=== PATIENT | male | born 1985 | race African-American/Black ===

== ENCOUNTER 2017-04-16 08:57 | Emergency (ER) | payer SELFPAY ==
[~2017-04-16] VITALS: Ht 172.7 cm; Wt 93.0 kg
[~2017-04-16 08:57] MED LIST: TAB-TAB PO
[2017-04-16 09:01] VITALS: BP 138/81; PULSE 84; RESP 14; TEMP 97.8; O2SAT 100
[2017-04-16] MEDS ORDERED: AUGM875T3 PO (09:21)
[2017-04-16] MEDS ORDERED: NAPR500T2 PO (09:21)
--- NOTE | 2017-04-16 09:22 | PD ---
HPI Chief Complaint: Oral / Dental Pain or Problem Time Seen by Provider: 09:05 Travel History International Travel<30 days: No Contact w/Intl Traveler<30days: No Traveled to known affect area: No History of Present Illness HPI 31-year-old male presents to the emergency department complaining of right- sided facial pain, some dental pain, radiating to the ear. Symptoms been ongoing for the past several days, other severe, worse at night. No relief with [id number] analgesics at home. No fevers or chills. Was sick with flulike symptoms a couple days ago. No other complaints. History Past Medical History Medical History: Denies Significant Hx Social History Alcohol Use: No (denies ) Tobacco Use: Yes (1/2 pack a day ) Allergies-Medications (Allergen,Severity, Reaction): Coded Allergies: No Known Allergies (Verified Adverse Reaction, Unknown, 04/16/17) Reported Meds & Prescriptions Reported Meds & Active Scripts Active No Active Prescriptions or Reported Medications Review of Systems Except as stated in HPI: all other systems reviewed are Neg Physical Exam Narrative GENERAL: Well appearing 32-year-old man, no acute distress. SKIN: Focused skin assessment warm/dry. HEAD: Atraumatic. Normocephalic. EYES: Pupils equal and round. No scleral icterus. No injection or drainage. ENT: No nasal bleeding or discharge. Mucous membranes pink and moist. Bilateral TMs are occluded with cerumen. The oropharynx is generally unremarkable. There is no dental tenderness to percussion. There is a little bit of sensitivity to the gumline behind a third molar on the right, there is no obvious abscess fluctuance or drainage. There is some fullness and tenderness to the parotid gland on the right but no purulent drainage from Stensen's duct. There is a little bit of adenopathy in the anterior cervical chain on the right side as well. NECK: Trachea midline. No JVD. CARDIOVASCULAR: Regular rate and rhythm. No murmur appreciated. RESPIRATORY: No accessory muscle use. Clear to auscultation. Breath sounds equal bilaterally. GASTROINTESTINAL: Abdomen soft, non-tender, nondistended. Hepatic and splenic margins not palpable. MUSCULOSKELETAL: No obvious deformities. No clubbing. No cyanosis. No edema. NEUROLOGICAL: Awake and alert. No obvious cranial nerve deficits. Motor grossly within normal limits. Normal speech. PSYCHIATRIC: Appropriate mood and affect; insight and judgment normal. Data Data Last Documented VS Vital Signs Date Time Temp Pulse Resp B/P (MAP) Pulse Ox O2 Delivery O2 Flow Rate FiO2 04/16/17 09:01 97.8 84 14 138/81 (100) 100 Room Air Orders Orders Naproxen (Naprosyn) (04/16/17 09:30) Dexamethasone (Decadron) (04/16/17 09:30) Amoxicil-Clavulanate (Augmentin) (04/16/17 09:30) MDM Medical Decision Making Medical Screen Exam Complete: Yes Emergency Medical Condition: Yes Differential Diagnosis Parotiditis, sinusitis, dental pain, otitis, other Narrative Course 32-year-old man, presents to the ED complaining of right-sided facial pain. Seems to have tenderness more in the cheek and parotid gland. There is a little bit of visible asymmetry from the outside, but not clear prostatitis. Sinus infection possible as well. Symptoms do not seem consistent with an otitis. Will treat for sinusitis, NSAIDs, antibiotics, close outpatient follow- up. Diagnosis Primary Impression: Sinusitis Additional Instructions: Take Naprosyn as prescribed as needed for inflammation and pain. If you develop fever in the next 24 hours or not improving in the next 48 hours , take Augmentin as prescribed. Follow up with your primary doctor in the next 2-4 days if not feeling improved. Return to the emergency department for any new or worsening symptoms. Med/Other Pt SpecificInfo: Prescription(s) given Scripts Amoxicillin-Clavulanate (Augmentin) 875-125 Mg Tab 1 TAB PO BID for Infection, #10 TAB 0 Refills Prov: Leandro Arce MD 04/16/17 Naproxen (Naproxen) 500 Mg Tab 500 MG PO BID, #14 TAB 0 Refills Prov: Leandro Arce MD 04/16/17 Leandro Arce MD Apr 16, 2017 09:22
[2017-04-16] MEDS ORDERED: NAPROXEN 500 MG TAB PO ONE (09:30)
[2017-04-16] MEDS ORDERED: AMOXICILLIN/CLAVULANATE K 875 MG TAB PO ONE (09:30)
[2017-04-16] MEDS ORDERED: DEXAMETHASONE 4 MG TAB PO ONE (09:30)
== END 2017-04-16 09:40 | disposition home or self-care (01) ==
LOC: NEPD 08:57
DX: J32.9 Chronic sinusitis, unspecified (principal); R59.0 Localized enlarged lymph nodes; F17.200 Nicotine dependence, unspecified, uncomplicated
CPT/HCPCS: 99283; J8540

== ENCOUNTER 2017-07-25 17:35 | Emergency (ER) | payer SELFPAY ==
[~2017-07-25] VITALS: Ht 172.7 cm; Wt 95.0 kg
[~2017-07-25 17:35] MED LIST changes: +AUGM875T3 PO; +NAPR500T2 PO; -TAB-TAB PO
[2017-07-25 17:40] VITALS: BP 148/92; PULSE 99; RESP 18; TEMP 97.9; O2SAT 100
--- NOTE | 2017-07-25 18:29 | PD ---
HPI Chief Complaint: Injury Time Seen by Provider: 18:19 Travel History International Travel<30 days: No Contact w/Intl Traveler<30days: No Traveled to known affect area: No History of Present Illness HPI Patient is a 32-year-old male presenting to emerge from for evaluation of left wrist pain. Patient states pain started yesterday, he denies actual injury or trauma. He states that he uses his left hand at work repetitively. He states is painful to flex and extend his wrist. He states when he tries to lift something heavy it feels weak. He reports the pain is a 7 out of 10, he states it sore and aching. There are no alleviating factors, pain is exacerbated with movement. Symptom onset was gradual, symptoms are moderate and constant in nature. [facility] Past Medical History Arthritis: Yes Diminished Hearing: No Headaches: Yes Musculoskeletal: Yes (L1-L2 CHRONIC BACK PAIN) Social History Alcohol Use: No (denies ) Tobacco Use: Yes (1/2 pack a day ) Substance Use: No (denies) Allergies-Medications (Allergen,Severity, Reaction): Coded Allergies: No Known Allergies (Verified Adverse Reaction, Unknown, 07/25/17) Reported Meds & Prescriptions Reported Meds & Active Scripts Active Augmentin (Amoxicillin-Clavulanate) 875-125 Mg Tab 1 Tab PO BID Naproxen 500 Mg Tab 500 Mg PO BID Review of Systems Except as stated in HPI: all other systems reviewed are Neg Musculoskeletal: Positive: Myalgias, Arthralgias, Pain Physical Exam Narrative GENERAL: Well-developed, well-nourished, alert -[place]incent[place] male. Presenting in no acute distress. SKIN: Warm and dry. HEAD: Normocephalic. EYES: No scleral icterus. No injection or drainage. NECK: Supple, trachea midline. No JVD or lymphadenopathy. CARDIOVASCULAR: Regular rate and rhythm without murmurs, gallops, or rubs. RESPIRATORY: Breath sounds equal bilaterally. No accessory muscle use. GASTROINTESTINAL: Abdomen soft, non-tender, nondistended. MUSCULOSKELETAL: No cyanosis, or edema. Tenderness to palpation over left wrist , no obvious deformities, full range of motion with flexion extension, 5 out of 5 lead clinical research coordinator strength. BACK: Nontender without obvious deformity. No CVA tenderness. Data Data Last Documented VS Vital Signs Date Time Temp Pulse Resp B/P (MAP) Pulse Ox O2 Delivery O2 Flow Rate FiO2 5/27/18 17:40 97.9 99 18 148/92 (110) 100 Orders Orders Wrist, Complete ([id number]) (07/25/17 ) Ibuprofen (Motrin) (07/25/17 18:30) Cyclobenzaprine (Flexeril) (07/25/17 18:30) MDM Medical Decision Making Medical Screen Exam Complete: Yes Emergency Medical Condition: Yes Interpretation(s) Vital Signs Date Time Temp Pulse Resp B/P (MAP) Pulse Ox O2 Delivery O2 Flow Rate FiO2 07/25/17 17:40 97.9 99 18 148/92 (110) 100 Differential Diagnosis Arthritis versus carpal tunnel versus muscle strain versus overuse versus other Narrative Course Patient is well-appearing 32-year-old male presenting for evaluation of left wrist pain. No preceding injury or trauma. Patient is neurovascularly intact. X-ray ordered and pending. Patient was given Motrin and Flexeril now. X-rays negative. Patient reports improvement in his pain. Patient will be given an Rayo wrap for support. He was advised to continue range of motion exercises. He was also encouraged to apply warm heat to affected area. Exam is most consistent with overuse. He was reassured that his symptoms should resolve on their own with conservative management. He was advised to return to emergency department for any new or worsening symptoms. Patient verbalized understanding of instructions. Patient is stable for discharge. Diagnosis Primary Impression: Strain of wrist, left Qualified Codes: S66.912A - Strain of unspecified muscle, fascia and tendon at wrist and hand level, left hand, initial encounter Referrals: [facility] Primary Care Physician Patient Instructions: General Instructions, Wrist Injury (ED) Additional Instructions: Take medications as directed Continue range of motion exercises, apply warm heat to affected area, avoid exacerbating activities Follow-up with your primary doctor Return to emergency department for any new or worsening symptoms Med/Other Pt SpecificInfo: Prescription(s) given Scripts Cyclobenzaprine (Flexeril) 10 Mg Tab 10 MG PO TID Y for MUSCLE SPASM, #21 TAB 0 Refills Prov: Denise Soliz 07/25/17 Ibuprofen (Ibuprofen) 800 Mg Tab 800 MG PO Q6HR Y for PAIN, #40 TAB 0 Refills Prov: Denise Soliz 07/25/17 Disposition: 01 DISCHARGE HOME Condition: Stable Denise Soliz July 25, 2017 18:29
[2017-07-25] MEDS ORDERED: IBUPROFEN 800 MG TAB PO ONE (18:30)
[2017-07-25] MEDS ORDERED: CYCLOBENZAPRINE HCL 10 MG TAB PO ONE (18:30)
--- NOTE | 2017-07-25 18:54 | RADRPT ---
EXAM DATE: 07/25/2017 6:47 PM EDT AGE/SEX: 32 years / Male INDICATIONS: Pain on lateral side of left wrist without known trauma. Pain radiates up and down arm with movement. CLINICAL DATA: This is the patient's initial encounter. Patient reports that signs and symptoms have been present for 2 days and indicates a pain score of 5/10. MEDICAL/SURGICAL HISTORY: None. None. COMPARISON: None . FINDINGS: Bony structures are intact and in normal alignment. Joints are intact without dislocation or signifi cant arthropathy. Osseous density is normal. Soft tissues are unremarkable. No radiopaque foreign bodies seen. CONCLUSION: Negative examination Electronically signed by: Henrique aMrtinez MD 07/25/2017 6:53 PM EDT
[2017-07-25] MEDS ORDERED: CYCL10TA PO (19:01)
[2017-07-25] MEDS ORDERED: IBUP1TAB7 PO (19:01)
== END 2017-07-25 19:23 | disposition home or self-care (01) ==
LOC: NEPD 17:35
DX: S66.912A Strain of unspecified muscle, fascia and tendon at wrist and hand level, left hand, initial encounter (principal); X58.XXXA Exposure to other specified factors, initial encounter
CPT/HCPCS: 73110; 99283